=== PATIENT | female | born 1955 | race Caucasian/White ===

== ENCOUNTER 2020-12-26 14:53 | Observation (INO) ==
[2020-12-26] MEDS ORDERED: Metoprolol Tartrate 5 mg VIAL 5 ml VIAL (1 mg/ml) IV ONE (15:54)
[2020-12-26] MEDS ORDERED: Magnesium Sulfate IV 1GM/100ML 1 GM/100 ML BAG IV ONE (15:54)
[2020-12-26 16:26] LABS: ABS Eosinophils 0.1 10^3/ul (0-0.6); ABS Monocytes 0.8 10^3/ul (0-0.8); ABS Neutrophils 8.5 10^3/ul (1.5-7.7); Eosinophil % 0.7 %; Hematocrit 43 % (35-47); Hemoglobin 14.5 g/dL (12.0-16.0); Lymphocyte % 9.5 %; Mean Corpuscular HGB Conc 34 g/dL (31-36); Mean Corpuscular Hemoglobin 31 pg (27-31); Mean Corpuscular Volume 90 fL (80-97); Platelet Count 210 10^3/uL (150-450); Red Blood Count 4.72 10^6 /uL (3.70-4.87); Red Cell Distribution Width 13 % (10-15); White Blood Count 10.4 10^3/uL (3.5-10.8)
[2020-12-26 17:00] LABS: Albumin 3.7 g/dL (3.2-5.2); Calcium 9.3 mg/dL (8.6-10.3); Globulin 3.6 g/dL (2-4); Potassium 4.1 mmol/L (3.5-5.0); Total Bilirubin 1.4 mg/dL (0.2-1.0); Total Protein 7.3 g/dL (6.4-8.9)
[2020-12-26 17:02] LABS: Troponin I 0.02 ng/mL (<0.03)
[2020-12-26] MEDS ORDERED: Furosemide 40 mg/4 ml IV VIAL IV SLOW PU ONE (17:07)
[2020-12-26 17:08] LABS: Rapid COVID-19 Molecular Undetected (Undetected)
[2020-12-26 17:19] LABS: Magnesium 1.8 mg/dL (1.9-2.7)
[2020-12-26 18:24] LABS: TSH Ultra Thyroid Stim Horm 2.03 mcIU/mL (0.34-5.60)
[2020-12-26] MEDS ORDERED: Dextrose 50% Syringe 50 ml 25 GM/50 ML SYRINGE IV PUSH PRN (18:36)
[2020-12-26] MEDS ORDERED: Metoprolol Tartrate 5 mg VIAL 5 ml VIAL (1 mg/ml) IV PRN (18:36)
[2020-12-27 06:00] LABS: ABS Basophils 0.1 10^3/ul (0-0.2); ABS Eosinophils 0.1 10^3/ul (0-0.6); ABS Lymphocytes 1.1 10^3/ul (1.0-4.8); ABS Monocytes 0.7 10^3/ul (0-0.8); ABS Neutrophils 5.5 10^3/ul (1.5-7.7); Eosinophil % 1.8 %; Hematocrit 42 % (35-47); Hemoglobin 14.3 g/dL (12.0-16.0); Mean Corpuscular HGB Conc 34 g/dL (31-36); Mean Corpuscular Hemoglobin 31 pg (27-31); Mean Corpuscular Volume 91 fL (80-97); Mean Platelet Volume 9.1 fL (7.4-10.4); Nucleated Red Blood Cells % 0.1; Platelet Count 185 10^3/uL (150-450); Red Blood Count 4.59 10^6 /uL (3.70-4.87); Red Cell Distribution Width 14 % (10-15); White Blood Count 7.6 10^3/uL (3.5-10.8)
[2020-12-27 06:17] LABS: Calcium 9.3 mg/dL (8.6-10.3); Potassium 3.7 mmol/L (3.5-5.0)
[2020-12-27] MEDS ORDERED: Furosemide 40 mg/4 ml IV VIAL IV SLOW PU SCH (09:00)
[2020-12-27] MEDS: Potassium Chlor 10 meq TAB PO SCH (09:42)
[2020-12-27] MEDS: Cholecalciferol (VIT D3) 1,000 unit TAB PO SCH (09:43)
[2020-12-27 10:05] LABS: HDL Cholesterol 53.8 mg/dL
[2020-12-27] MEDS: Furosemide 40 mg/4 ml IV VIAL IV SLOW PU SCH (13:32)
[2020-12-28] MEDS: Potassium Chlor 10 meq TAB PO SCH (09:41)
[2020-12-28] MEDS: Cholecalciferol (VIT D3) 1,000 unit TAB PO SCH (09:42)
[2020-12-28] MEDS: Furosemide 40 mg/4 ml IV VIAL IV SLOW PU SCH (09:43)
[2020-12-28] MEDS: Acetaminop/Codeine 300mg/30mg TAB PO PRN (22:32)
[2020-12-29 06:47] LABS: ABS Basophils 0.1 10^3/ul (0-0.2); ABS Eosinophils 0.2 10^3/ul (0-0.6); ABS Lymphocytes 1.4 10^3/ul (1.0-4.8); ABS Monocytes 1.2 10^3/ul (0-0.8); ABS Neutrophils 6.6 10^3/ul (1.5-7.7); Eosinophil % 1.9 %; Hematocrit 41 % (35-47); Hemoglobin 13.9 g/dL (12.0-16.0); Mean Corpuscular HGB Conc 34 g/dL (31-36); Mean Corpuscular Hemoglobin 31 pg (27-31); Mean Corpuscular Volume 91 fL (80-97); Mean Platelet Volume 9.2 fL (7.4-10.4); Platelet Count 195 10^3/uL (150-450); Red Blood Count 4.52 10^6 /uL (3.70-4.87); Red Cell Distribution Width 13 % (10-15); White Blood Count 9.5 10^3/uL (3.5-10.8)
[2020-12-29 07:02] LABS: Calcium 9.1 mg/dL (8.6-10.3); Magnesium 1.6 mg/dL (1.9-2.7); Potassium 3.2 mmol/L (3.5-5.0)
[2020-12-29] MEDS ORDERED: Potassium Chlor 20 meq TAB.ER PO ONE (07:10)
[2020-12-29] MEDS ORDERED: Magnesium Sulfate 2 gm BAG 2 GM/50 ML BAG IVPB ONE (07:10)
[2020-12-29] MEDS: Potassium Chlor 10 meq TAB PO SCH (09:26)
[2020-12-29] MEDS: Cholecalciferol (VIT D3) 1,000 unit TAB PO SCH (09:27)
[2020-12-29] MEDS: Acetaminop/Codeine 300mg/30mg TAB PO PRN (10:59)
[2020-12-29 11:34] VITALS: BP 108/72
== END 2020-12-29 13:38 | disposition home or self-care (01) | DRG 291 ==
LOC: EDHOLD 14:53 → ED 14:53 → SUATTDRO 18:13 → MEDTELE 21:43
PROVIDERS: ADMIT Student in an Organized Health Care Education/Training Program; ATTEND Internal Medicine